=== PATIENT | female | born 1935 | race Caucasian/White ===

== ENCOUNTER 2016-11-13 15:17 | Emergency (ER) | payer OTHER ==
--- NOTE | ~2016-11-13 | CR72 ---
[facility] A Service of [facility] RADIOLOGY TEXT RESULTS PATIENT: LOIVIER DOMINGO LOCATION: [facility] : 35 UNIT #: [id number] AGE: [address]: Padmaja Guerrero MD SEX: F ORDER DR: [id number] [facility] [address] [place], [place] [address] [id number] E MR#: [id number] #: [id number] NAME: OLIVIER DOMINGO : 1935 SEX: F STUDY DATE/TIME: 11/13/2016 14:50 UNIT: [facility] ROOM: STUDY DESCRIPTION: CR Chest Single View Portable Attending Physician: Padmaja Guerrero M.D. Ordering Physician: Padmaja Guerrero M.D. Primary Care Physician: Felix Robbins M.D. MEDICAL IMAGING REPORT This report is preliminary unless electronic signature is present EXAM Portable chest 11/13/2016 HISTORY Slurred speech and shortness of breath onset today. TECHNIQUE Single AP view chest was obtained. FINDINGS Heart size is normal. The aorta is tortuous. Both lungs are clear with normal vascular markings. IMPRESSION Tortuous aorta. No active disease. Dictated by... Nils Rodriguez M.D. THIS IS AN ELECTRONICALLY VERIFIED REPORT Nils Rodriguez M.D. at 11/17/2016 4:31 PM RAO/romelia TD: 11/13/2016 17:56 JOB #: [id number] MEDICAL IMAGING REPORT COPY
--- NOTE | ~2016-11-13 | CT17 ---
[facility] A Service of [facility] & [facility] RADIOLOGY TEXT RESULTS PATIENT: OLIVIER DOMINGO LOCATION: [facility] : 35 UNIT #: [id number] AGE: [address]: Padmaja Guerrero MD SEX: F ORDER DR: [id number] [facility] [address] [place], [place] [address] [id number] E MR#: [id number] Acc #: [id number] NAME: OLIVIER DOMINGO : 1935 SEX: F STUDY DATE/TIME: 11/13/2016 16:37 UNIT: [facility] ROOM: STUDY DESCRIPTION: CT Angio Head Attending Physician: Padmaja Guerrero M.D. Ordering Physician: Padmaja Guerrero M.D. Primary Care Physician: Felix Robbins M.D. MEDICAL IMAGING REPORT This report is preliminary unless electronic signature is present EXAM CT angiogram of the head and neck HISTORY Slurred speech, unsteady on her feet or face. Last known normal yesterday. No history of cancer. No known trauma history. TECHNIQUE This CT exam was performed with one or more of the following radiation dose reduction techniques: automatic exposure control, adjustment of mA and/or kV according to patient size, and iterative reconstruction. COMMENT CT angiography of the head and neck vessels performed during the intravenous administration of 100 mL of Isovue-370. There is an earlier head CT from the same day. Imaging acquired in the axial plane followed by multiple reconstructed and reformatted images for the purpose of 3-D CT angiography of the head and neck vessels. CT ANGIOGRAM NECK: Aortic arch branch pattern is normal. There is some vascular calcification present but no hemodynamically significant stenosis is suspected at great vessel origins. Evaluation of the right carotid system shows mild partially calcified plaque at the right carotid bifurcation but by NASCET criteria 0% stenosis suspected. Mild calcified plaque at the carotid siphon on the right with probably only mild narrowing. Evaluation of left carotid system shows largely noncalcified plaque at the left carotid bulb but by NASCET criteria there is not hemodynamically-significant narrowing. About 0% stenosis estimated. Mild calcified plaque at the left carotid siphon with probably mild stenosis. [facility] A Service of [facility] & [facility] RADIOLOGY TEXT RESULTS PATIENT: OLIVIER DOMINGO LOCATION: [facility] #: [id number] : 35 UNIT #: [id number] AGE: [address]: Padmaja Guerrero MD SEX: F ORDER DR: Evaluation of the right vertebral artery shows the vessel to be patent throughout the neck. No significant narrowing at its origin. Evaluation of left vertebral artery shows vessel to be patent throughout the neck and probably mild narrowing at its origin. Evaluation intracranial circulation shows no intracranial vascular cutoff. There is a 5.0 mm in length segment of high-grade stenosis likely in the right posterior cerebral artery distribution approximately the P3 distribution. There is also disease in the bilateral intracranial vertebral arteries with calcified plaque seen. There is probably at least moderate stenosis of the left vertebral artery and nzkv-[id number]-zmfnnotn stenosis of the right vertebral artery associated with the calcified plaque. There is no significant anterior communicator seen. No other focal central stenosis. Dural venous sinuses are patent. Neither posterior communicator is seen. No intracranial aneurysm is suspected allowing for the technical limitation of CT angiography for assessment for aneurysm at the level of the skull base because of the adjacent bones. There is atrophy in general. See earlier noncontrast head CT report. Patient has had cataract surgery bilaterally. Parotid glands, submandibular glands, thyroid gland unremarkable. There are degenerative changes in the cervical spine. IMPRESSION 1. By NASCET criteria essentially 0% stenosis at either carotid bifurcation. 2. Both vertebral arteries are patent and fairly codominant. 3. There is calcified plaque involving the bilateral intracranial vertebral arteries probably resulting in hemodynamically significant stenosis and probably worse on the left than the right. The amount of calcification present makes it hard to accurately estimate the stenosis. Gross estimation of moderate stenosis left, gqbi-nz-nzvvmwhp stenosis right. 4. No intracranial vascular cutoff. 5. Concern for high-grade stenosis over short segment right posterior cerebral artery distribution approximately the P3 vessel. I suspect given other findings this is a manifestation of intracranial atherosclerotic disease. 6. Probably mild narrowing of the bilateral supraclinoid internal carotid arteries. 7. See noncontrast head CT report. Partial redemonstration of atrophy and probable sequelae of small vessel disease. STAT * RESULT Dictated by... April Cope M.D. [facility] A Service of [facility] & [facility] RADIOLOGY TEXT RESULTS PATIENT: OLIVIER DOMINGO LOCATION: [facility] #: [id number] : 35 UNIT #: [id number] AGE: [address]: Padmaja Guerrero MD SEX: F ORDER DR: THIS IS AN ELECTRONICALLY VERIFIED REPORT April Cope M.D. at 11/13/2016 6:51 PM Siddharth TD: 11/13/2016 17:17 JOB #: [id number] MEDICAL IMAGING REPORT COPY
--- NOTE | ~2016-11-13 | EKG ---
PATIENT: OLIVIER DOMINGO UNIT #: [id number] Ventricular Rate: 60 BPM Atrial Rate: 60 BPM P-R Interval: 132 ms QRS Duration: 76 ms Q-T Interval: 418 ms QTC Calculation(Bezet): 418 ms P [place]: 92 degrees Calculated R [place]: 42 degrees Calculated T [place]: 69 degrees Diagnosis Line: Normal sinus rhythm Diagnosis Line: Right atrial enlargement Diagnosis Line: Borderline ECG Diagnosis Line: No previous ECGs available Diagnosis Line: Confirmed by RAMIRO LUA MD ([id number]) on 11/13/2016 Diagnosis Line: 5:34:15 PM INTERPRETING MD: STONEY DIXON
--- NOTE | ~2016-11-13 | CT23 ---
[facility] A Service of [facility] RADIOLOGY TEXT RESULTS PATIENT: OLIVIER DOMINGO LOCATION: [facility] : 35 UNIT #: [id number] AGE: [address]: Padmaja Guerrero MD SEX: F ORDER DR: [id number] [id number] [place], [place] [address] [id number] E MR#: [id number] Acc #: [id number] NAME: OLIVIER DOMINGO : 1935 SEX: F STUDY DATE/TIME: 11/13/2016 16:37 UNIT: [facility] ROOM: STUDY DESCRIPTION: CT Angio Neck Attending Physician: Padmaja Guerrero M.D. Ordering Physician: Padmaja Guerrero M.D. Primary Care Physician: Felix Robbins M.D. MEDICAL IMAGING REPORT This report is preliminary unless electronic signature is present EXAM CT angiogram of the neck HISTORY FINDINGS Please see CT angiogram of the head for results. Dictated by... April Cope M.D. THIS IS AN ELECTRONICALLY VERIFIED REPORT April Cope M.D. at 11/13/2016 6:51 PM Siddharth TD: 11/13/2016 17:25 JOB #: [id number] MEDICAL IMAGING REPORT COPY
--- NOTE | ~2016-11-13 | CT71 ---
[facility] A Service of [facility] RADIOLOGY TEXT RESULTS PATIENT: OLIVIER DOMINGO LOCATION: [facility] : 35 UNIT #: [id number] AGE: [address]: Padmaja Guerrero MD SEX: F ORDER DR: [id number] [facility] [address] [place], [place] [address] [id number] E MR#: [id number] Acc #: [id number] NAME: OLIVIER DOMINGO : 1935 SEX: F STUDY DATE/TIME: 11/13/2016 16:32 UNIT: [facility] ROOM: STUDY DESCRIPTION: CT Head Wo Contrast Attending Physician: Padmaja Guerrero M.D. Ordering Physician: Padmaja Guerrero M.D. Primary Care Physician: Felix Robbins M.D. MEDICAL IMAGING REPORT This report is preliminary unless electronic signature is present EXAM Head CT without contrast HISTORY Slurred speech and unsteadiness occurring since yesterday. TECHNIQUE Axial images were obtained without contrast. This CT exam was performed with one or more of the following radiation dose reduction techniques: automatic exposure control, adjustment of mA and/or kV according to patient size, and iterative reconstruction. FINDINGS Generalized atrophy is seen. There is no evidence of mass lesion, hemorrhage or edema. No midline shift is noted. Extraaxial structures are remarkable for atherosclerotic plaque that is calcified in the carotid siphons and distal vertebrals. IMPRESSION Atrophy with chronic changes. No acute findings. Dictated by... Nils Rodriguez M.D. THIS IS AN ELECTRONICALLY VERIFIED REPORT Nils Rodriguez M.D. at 11/17/2016 4:31 PM RLF/pcl TD: 11/13/2016 22:15 JOB #: [id number] [facility] A Service [facility] RADIOLOGY TEXT RESULTS PATIENT: OLIVIER DOMINGO LOCATION: [facility] : 35 UNIT #: [id number] AGE: [address]: Pamdaja Guerrero P SEX: F ORDER DR: MEDICAL IMAGING REPORT COPY
[2016-11-13 15:11] LABS: BASOPHIL% 0.5 % (0-2.5); EOSINOPHIL# 0.1 X10e3 (0-0.7); EOSINOPHIL% 0.9 % (0.0-7.0); HEMOGLOBIN 11.8 gm/dL (12.0-16.0); LYMPHOCYTE# 1.1 X10e3 (1.0-3.5); LYMPHOCYTE% 17.2 % (17.0-45.0); MEAN CELL VOLUME 90.1 FL (83-96); MEAN CORPUSCULAR HEMOGLOBIN 29.6 PG (28-34); MEAN CORPUSCULAR HGB CONC 32.8 g/dL (30-36); MEAN PLATELET VOLUME 7.9 FL (6.5-11.5); MONOCYTE# 0.6 X10e3 (0-1.0); MONOCYTE% 9.5 % (3.0-12.0); NEUTROPHIL# 4.8 X10e3 (1.5-7.1); NEUTROPHIL% 71.9 % (40-75); PLATELET COUNT 188 X10e3 (140-420); RED BLOOD COUNT 3.99 X10e (3.90-5.30); RED CELL DISTRIBUTION WIDTH 15.1 % (11.0-15.5); WHITE BLOOD COUNT 6.7 X10e3 (4.0-10.5)
[~2016-11-13 15:17] MED LIST: FERROUS SULFATE1 TAB PO; LEVAQUIN PO; NO MEDICATIONS
[2016-11-13 15:35] LABS: DIFF IND NO
[2016-11-13 15:42] LABS: ALBUMIN SERUM 3.9 g/dL (3.5-5.0); ALKALINE PHOSPHATASE 55 U/L (32-92); AST (SGOT) 19 U/L (10-42); BILIRUBIN, DIRECT 0.1 mg/dL (0.0-0.2); BILIRUBIN,INDIRECT 0.3 mg/dL (0.0-0.9); BILIRUBIN,TOTAL 0.4 mg/dL (0.2-2.0); BLOOD UREA NITROGEN 31 mg/dL (9-23); BUN/CREATININE RATIO 38.75; CARBON DIOXIDE 26 mmol/L (22-31); CHLORIDE 107 mmol/L (100-111); CREATININE SERUM 0.8 mg/dL (0.6-1.4); GLOM FILT RATE Estimated ABOVE60 mL/min (>60); GLUCOSE FASTING 103 mg/dL (70-110); POTASSIUM 4.1 mmol/L (3.5-5.1); PROTEIN TOTAL SERUM 6.5 g/dL (6.0-8.3); SODIUM 141 mmol/L (135-145)
[2016-11-13 15:43] LABS: PARTIAL THROMBOPLASTIN TIME 24.4 SECONDS (23.5-31.3); PROTHROMBIN TIME (PATIENT) 10.6 SECONDS (9.6-11.5)
[2016-11-13 15:44] LABS: ALT (SGPT) <5 U/L (10-40)
[2016-11-13 18:08] LABS: URINE SOURCE CLEAN CATCH
[2016-11-13 18:15] LABS: URINE APPEARANCE CLEAR; URINE BILIRUBIN NEG (NEG); URINE BLOOD NEG (NEG); URINE COLOR YELLOW; URINE GLUCOSE NEG (NEG); URINE KETONE TRACE (NEG); URINE LEUKOCYTE ESTERASE NEG (NEG); URINE NITRATE NEG (NEG); URINE PH 5.5 (5-8); URINE PROTEIN NEG (NEG); URINE SPECIFIC GRAVITY 1.054 (1.003-1.035); URINE UROBILINOGEN 0.2 MG/DL (NEG)
[2016-11-13 18:49] LABS: CULTURE INDICATED? NO
== END 2016-11-13 19:25 | disposition home or self-care (01) ==
LOC: CED 15:17
PROVIDERS: Student in an Organized Health Care Education/Training Program
DX: G45.9 Transient cerebral ischemic attack, unspecified (principal); Z88.0 Allergy status to penicillin; Z79.899 Other long term (current) drug therapy
CPT/HCPCS: 36415; 70450; 70496; 70498; 71010; 80048; 80076; 81003; 82947; 85025; 85610; 85730; 93005; 99284; Q9967

== ENCOUNTER 2016-11-17 12:26 | Emergency (ER) | payer OTHER ==
--- NOTE | ~2016-11-17 | MR18 ---
[facility] A Service of [facility] RADIOLOGY TEXT RESULTS PATIENT: OLIVIER DOMINGO LOCATION: [facility] : 35 UNIT #: [id number] AGE: [address]: Cody Bergeron MD SEX: F ORDER DR: [id number] [facility] [address] [place], [place] [address] [id number] E MR#: [id number] Acc #: [id number] NAME: OLIVIER DOMINGO : 1935 SEX: F STUDY DATE/TIME: 11/17/2016 13:49 UNIT: [facility] ROOM: STUDY DESCRIPTION: MR Brain Wo Contrast Attending Physician: Cody Bergeron M.D. Ordering Physician: Cody Bergeron M.D. Primary Care Physician: Felix Robbins M.D. MRI CENTER REPORT This report is preliminary unless electronic signature is present. EXAM MR brain 11/17 INDICATIONS Dizziness with nausea and vomiting that started last night. Patient slightly disoriented as well. TECHNIQUE Multisequence multiplanar imaging was performed through the brain without contrast. Comparison made with brain MRI from 10/12/2014. FINDINGS Diffusion imaging reveals no evidence of acute or subacute infarct. Again seen is generalized atrophy. Ventricular size and configuration are stable. Chronic small vessel ischemic changes are present in the white matter. These also appear stable. Major intracranial flow voids are maintained. No masses are identified, and there is no evidence of acute hemorrhage. Craniovertebral junction is within normal limits. IMPRESSION No evidence of acute infarct or hemorrhage. There is atrophy with chronic small vessel ischemic disease in the white matter. Findings are essentially stable from 10/12/2014. Dictated by... Nils Wooten Jr., M.D. THIS IS AN ELECTRONICALLY VERIFIED REPORT Nils Wooten Jr., M.D. at 11/17/2016 3:52 PM NAZARIO/kelir TD: 11/17/2016 15:22 JOB #: [id number] [facility] A Service of [facility] RADIOLOGY TEXT RESULTS PATIENT: OLIVIER DOMINGO LOCATION: [facility] #: [id number] : 35 UNIT #: [id number] AGE: [address]: Cody Bergeron MD SEX: F ORDER DR: MRI CENTER REPORT COPY
--- NOTE | ~2016-11-17 | EKG ---
PATIENT: OLIVIER DOMINGO UNIT #: [id number] Ventricular Rate: 68 BPM Atrial Rate: 68 BPM P-R Interval: 134 ms QRS Duration: 70 ms Q-T Interval: 410 ms QTC Calculation(Bezet): 435 ms P [place]: 64 degrees Calculated R [place]: 7 degrees Calculated T [place]: 72 degrees Diagnosis Line: Normal sinus rhythm Diagnosis Line: Possible Left atrial enlargement Diagnosis Line: Borderline ECG Diagnosis Line: When compared with ECG of 13-NOV-2016 14:46, Diagnosis Line: No significant change was found Diagnosis Line: Confirmed by RAMIRO LUA MD ([id number]) on 11/18/2016 Diagnosis Line: 7:25:51 PM INTERPRETING MD: STONEY DIXON
[2016-11-17 12:27] LABS: POC - CKMB 1.8 ng/mL (0.0-7.9); POC - TROPONIN <0.05 ng/mL (<=0.05)
[2016-11-17 12:28] LABS: BASOPHIL% 0.2 % (0-2.5); EOSINOPHIL# 0.1 X10e3 (0-0.7); EOSINOPHIL% 0.9 % (0.0-7.0); HEMATOCRIT 38.3 % (35.0-45.0); HEMOGLOBIN 12.4 gm/dL (12.0-16.0); LYMPHOCYTE# 0.3 X10e3 (1.0-3.5); LYMPHOCYTE% 4.1 % (17.0-45.0); MEAN CELL VOLUME 90.9 FL (83-96); MEAN CORPUSCULAR HEMOGLOBIN 29.5 PG (28-34); MEAN CORPUSCULAR HGB CONC 32.5 g/dL (30-36); MEAN PLATELET VOLUME 8.6 FL (6.5-11.5); MONOCYTE# 0.2 X10e3 (0-1.0); MONOCYTE% 3.9 % (3.0-12.0); NEUTROPHIL# 5.9 X10e3 (1.5-7.1); NEUTROPHIL% 90.9 % (40-75); PLATELET COUNT 172 X10e3 (140-420); RED BLOOD COUNT 4.21 X10e (3.90-5.30); RED CELL DISTRIBUTION WIDTH 15.1 % (11.0-15.5); WHITE BLOOD COUNT 6.5 X10e3 (4.0-10.5)
[2016-11-17 12:31] LABS: DIFF IND NO
[2016-11-17 12:56] LABS: ALBUMIN SERUM 3.5 g/dL (3.5-5.0); ALKALINE PHOSPHATASE 53 U/L (32-92); AST (SGOT) 22 U/L (10-42); BILIRUBIN, DIRECT 0.2 mg/dL (0.0-0.2); BILIRUBIN,INDIRECT 0.4 mg/dL (0.0-0.9); BILIRUBIN,TOTAL 0.6 mg/dL (0.2-2.0); BLOOD UREA NITROGEN 28 mg/dL (9-23); CARBON DIOXIDE 25 mmol/L (22-31); CHLORIDE 109 mmol/L (100-111); CREATININE SERUM 0.8 mg/dL (0.6-1.4); GLOM FILT RATE Estimated ABOVE60 mL/min (>60); GLUCOSE FASTING 136 mg/dL (70-110); POTASSIUM 4.1 mmol/L (3.5-5.1); PROTEIN TOTAL SERUM 6.6 g/dL (6.0-8.3); SODIUM 137 mmol/L (135-145)
[2016-11-17 12:57] LABS: ALT (SGPT) <5 U/L (10-40)
== END 2016-11-17 15:00 | disposition home or self-care (01) ==
LOC: CED 12:26
PROVIDERS: Emergency Medicine
DX: H81.399 Other peripheral vertigo, unspecified ear (principal); F03.90 Unspecified dementia, unspecified severity, without behavioral disturbance, psychotic disturbance, mood disturbance, and anxiety; Z90.710 Acquired absence of both cervix and uterus; Z98.890 Other specified postprocedural states; Z88.0 Allergy status to penicillin
CPT/HCPCS: 36415; 70551; 80048; 80076; 82553; 82947; 84484; 85025; 93005; 96374; 96375; 99284; J1100; J2765